=== PATIENT | female | born 1990 | race Two or more races ===

== ENCOUNTER 2024-10-16 22:13 | Emergency (ER) | payer MEDICAID, SELFPAY ==
[2024-10-16 22:14] VITALS: BMI 34.3
[2024-10-16 22:32] VITALS: BP 141/93; PULSE 88; RESP 18; TEMP 37.3; O2SAT 96
--- NOTE | 2024-10-16 22:46 | EDNOTE_ITS ---
ED Ear RME/HPI General Chief complaint: Dental/Oral/Throat Stated complaint: SORE THROAT / LT EARACHE Time Seen by Provider: 10/16/24 22:41 Arrival date/time: 10/16/24 22:13 34 year old female present to emergency room with c/o of sore throat, left ear pain and eye redness for 3 days. Pt report sore throat and ear pain worsen today. LOCATION: ear, sore throat, eye SEVERITY: Symptoms are described as being severe with limitations on activities of daily living CONTEXT: The patient is unable to identify any inciting events. DURATION/TIMING: The symptoms started approximately 3 days ago and have been constant since and have been progressive getting worse. ASSOCIATED SYMPTOMS: The patient is unable to identify any other associated symptoms. MODIFYING FACTORS: The patient is unable to identify any alleviating or aggravating symptoms. PERTINENT ROS: no fevers, no cough, no chest pain/shortness of breath no nausea,vomiting, diarrhea, no dizziness/headache no rash no loc/syncope episode no vision changes REVIEW OF SYSTEMS: See History of Present Illness - with the exception of those mentioned in the history of present illness, all other systems reviewed and reported as negative GENERAL: In general the patient is awake, interactive, in an emergency department gurney. HEAD/EYES/EARS/NOSE/THROAT: + left ear TM erythema and bulging, no bleeding/rupture or mastoid tenderness. normo-cephalic, atraumatic, mucus membranes are moist, anicteric, palpebral trachea is midline. + left eye inject conjuctivia CARDIOVASCULAR: regular rate and regular rhythm, no murmurs, heart sounds are not distant, strong pulses in all four extremities that are equal and symmetric bilateral upper and lower extremities, normal capillary refill. CHEST/PULMONARY: normal chest rise and fall, good air movement, clear to auscultation bilaterally, normal inspiratory to expiratory ratios without evidence of respiratory distress. NECK: No midline/Paraspinal tenderness, no step off ROM/Strenght intact No Kernig and bruzinski sign. No trauma ABDOMEN: soft, not tender, no masses appreciated BACK: normal range of motion without pain. NEUROLOGICAL: cranio-facial features are symmetric, moves all four extremities equally without obvious limitations or weakness. EXTREMITY: no tenderness to palpation over the long bones or large joints of the bilateral upper and lower extremities, no joint swelling, no joint erythema, no signs of trauma, no unilateral leg swelling and no peripheral edema. SKIN: warm, dry, well-perfused, no jaundice, no rash, no telangiectasias or petechia. PSYCH: calm, cooperative, no evidence of psychosis or agitation Related Data Home Medications ?Medication ?Instructions ?Recorded ?Confirmed paroxetine HCl 20 mg tablet (Paxil) 20 mg PO QDAY 08/05/18 02/23/22 Previous Rx's ?Medication ?Instructions ?Recorded amoxicillin 875 mg-potassium 1 tab PO Q12H #20 tabs 10/16/24 clavulanate 125 mg tablet ofloxacin 0.3 % eye drops See Rx Instructions ophthalmic 10/16/24 (eye) .COMPLEX #5 mL prednisone 20 mg tablet 20 mg PO QDAY 3 days #3 tabs 10/16/24 Allergies Allergy/AdvReac Type Severity Reaction Status Date / Time No Known Allergies Allergy Verified 03/08/23 16:45 Course Course Course Narrative: Patient presenting with otalgia.? Given history and physical exam findings, presentation most consistent with otitis media.? The differential also included pneumonia, urinary tract infection, pharyngitis, upper respiratory infection, otitis externa, mastoiditis, dental infection however these are less likely given data presented thus far.? Patient was provided first dose of steroid and oral antibiotics? in the ED.? Antibiotics were prescribed as below.? Advised to use Tylenol/ibuprofen for fevers.? Informed to return to ETC if has new or worsening symptoms such as persistent fevers, persistent vomiting, decreased PO. Plan:? Discharge from Emergency Department augmentin, predisone 20mg? and ofloxcin drops (eye )? Tylenol/ibuprofen for fevers/pain Followup with PCP in days Informed to return to Emergency Department if has new or worsening symptoms.? Quality Measures none Orders Category Date Time Status Amoxicillin/Pot Clav 875 [Augmentin 875] Med 10/16/24 22:41 Discontinued 1 tab PO X1 ONE predniSONE Med 10/16/24 22:41 Discontinued 20 mg PO X1 ONE Vital Signs Vital signs: Vital Signs Temperature 99.1 F 10/16/24 22:32 Pulse Rate 88 10/16/24 22:32 Respiratory Rate 18 10/16/24 22:32 Blood Pressure 141/93 H 10/16/24 22:32 Pulse Oximetry (%) 96 10/16/24 22:32 Oxygen Delivery Method Room Air 10/16/24 22:32 Ear Patient data External records reviewed:: None Clinical information provided by:: patient Social determinants that could affect healthcare access:: none Patient has the following chronic illnesses:: none How is presenting disease/condition affected by chronic disease/condition?: no chronic disease Evaluation data The following diagnostics were reviewed and interpreted by me:: other (specify) (none ) Lab and/or radiology exams considered but not ordered:: none Interpretation Summary: none Medications / Prescriptions Medications or Prescriptions considered but not ordered:: none Medication administrations:: Medication Administration History Discontinued Medications Amoxicillin/Clavulanate Potassium (Amoxicillin/Pot Clav 875 Tablet) 1 tab PO X1 ONE Stop: 10/16/24 22:42 Prednisone (Prednisone 20 Mg Tablet) 20 mg PO X1 ONE Stop: 10/16/24 22:42 as stated above Consultations Consultation(s) initiated? (list below): No Diagnosis Most likely diagnosis given after review of the tests above:: OM, conjuctivitis Admission Indicated Admission indicated?: not indicated Admission Request Was there a request for admission?: No Disposition Plan Disposition Plan: Discharge Discharge Attestation Discharge Attestation: The patient and all family members were given an opportunity to ask questions and understood the discharge instructions. Discharge instructions specifically effects, indications for sooner follow up or return to the emergency department, and the expected course of current diagnosis. Patient condition: Stable Discharge Plan Plan Patient Disposition: HOME (Self Care) Health Concerns: Follow with PMD as directed Take tylenol or motrin as need Return to ED if sx worsen Prescriptions/Referrals Prescriptions/Med Rec: New amoxicillin-pot clavulanate 875-125 mg tablet 1 tab PO Q12H Qty: 20 0RF ofloxacin 0.3 % drops See Rx Instructions .ROUTE .COMPLEX Qty: 5 0RF Rx Instructions: put 1-2 drps into affected eye(s) every 2-4 h x 2 days, then 1-2 drps 4 times/day days 3-7 prednisone 20 mg tablet 20 mg PO QDAY 3 Days Qty: 3 0RF Taper: Prednisone Taper 20 mg DAILY for 2 Days and 0 Hour 10 mg DAILY for 2 Days and 0 Hour 5 mg DAILY for 7 Days and 0 Hour No Action paroxetine HCl [Paxil] 20 mg Tablet 20 mg PO QDAY Referrals: Temporary Provider,ED [Primary Care Provider] - In 1 week Problem List Clinical Impression: Otitis media, Acute bacterial conjunctivitis Patient/Caregiver Discharge Instructions Education Materials: ED Otitis Media Antibiotic ... Print Language: Syriac Stand Alone Forms: Leoisa Award Info., Patient Portal Info Letter
[2024-10-16] MEDS: predniSONE 20 MG TABLET PO (22:56)
[2024-10-16] MEDS: AMOXICILLIN/POT CLAV 875 TABLET 1 TAB PO (22:56)
== END 2024-10-16 22:59 | disposition home or self-care (01) ==
LOC: SERX 22:59
PROVIDERS: Emergency Provider Emergency Medicine; PCP Nurse Practitioner Family
DX: H66.92 Otitis media, unspecified, left ear (principal); H10.32 Unspecified acute conjunctivitis, left eye
CPT/HCPCS: 99282; J7512; A9270

== ENCOUNTER 2025-07-14 21:52 | Emergency (ER) | payer MEDICAID, SELFPAY ==
[2025-07-14 21:54] VITALS: BMI 30.9
[2025-07-14 22:22] VITALS: BP 110/82; PULSE 120; RESP 18; TEMP 36.4; O2SAT 98
--- NOTE | 2025-07-14 22:42 | EDRME_ITS ---
Rapid Medical Screening Exam [facility] Arrival date/time: 07/14/25 21:52 35F with history of psych presents to ED with 5 days of N/V, ab cramping, and non-bloody diarrhea. No recent travel or URI symptoms. Took Linzess (has had it before) prior to this due to chronic constipation. Has been on GLP-1 for about 5 months with no recent dose changes. Chief Complaint: Nausea/Vomiting/Diarrhea Vital signs: Vital Signs Temperature 97.5 F 07/14/25 22:22 Pulse Rate 120 H 07/14/25 22:22 Respiratory Rate 18 07/14/25 22:22 Blood Pressure 110/82 07/14/25 22:22 Pulse Oximetry (%) 98 07/14/25 22:22 Oxygen Delivery Method Room Air 07/14/25 22:22
[2025-07-14 23:17] LABS: Basophils # (Auto) 0.0 Thou/mm3 (0.0-0.2); Basophils % (Auto) 0 % (0-2.5); Eosinophils # (Auto) 0.1 Thou/mm3 (0.0-0.5); Eosinophils % (Auto) 1 % (0-10); Hematocrit 43.2 % (36.0-46.0); Hemoglobin 14.2 g/dL (12.0-16.0); Immature Granulocytes Auto 0.06 Thou/mm3 (0.00-0.00); Lymphocytes # (Auto) 2.5 Thou/mm3 (1.0-4.8); Lymphocytes % (Auto) 17 % (10-50); Mean Corpuscular HGB Conc 32.9 g/dl (31.0-37.0); Mean Corpuscular Hemoglobin 25.7 pg (25.0-35.0); Mean Corpuscular Volume 78 fL (80-100); Monocytes # (Auto) 1.0 Thou/mm3 (0.0-0.8); Monocytes % (Auto) 7 % (0-12); Neutrophils # (Auto) 10.7 Thou/mm3 (1.8-7.7); Neutrophils % (Auto) 75 % (37-80); Nucleated Red Blood Cell # 0.00 Thou/mm3 (0.00-0.00); Nucleated Red Blood Cell % 0 /100 WBC (0); Platelet Count 411 Thou/mm3 (140-440); RDW Standard Deviation 41.0 fL (36.4-46.3); Red Blood Count 5.53 Miln/mm3 (4.00-5.20); White Blood Count 14.3 Thou/mm3 (3.6-11.0)
[2025-07-14 23:41] LABS: Alanine Aminotransferase 38 U/L (10-49); Albumin, Serum 5.5 gm/dL (3.5-5.0); Albumin/Globulin Ratio 1.7 (1.2-2.2); Alkaline Phosphatase 93 U/L (46-116); Anion Gap 11 (7-16); Aspartate Amino Transferase 34 U/L (0-34); BUN/Creatinine Ratio 14 Ratio (12-20); Bilirubin,Total 0.6 mg/dL (0.3-1.2); Blood Urea Nitrogen 14 mg/dL (9-23); Calcium 10.5 mg/dL (8.3-10.6); Calcium (Corrected) 10.5 mg/dL (8.5-10.1); Carbon Dioxide 20.8 mMol/L (20.0-31.0); Chloride 104 mMol/L (98-107); Creatinine (Component) 1.0 mg/dL (0.6-1.3); Estimated Creatinine Clearance 80.4 mL/min (>60); Globulin 3.2 gm/dL (2.3-3.5); Glucose 105 mg/dL (74-106); Magnesium 2.3 mg/dL (1.6-2.6); Osmolality,Calculated 272 (275-295); Potassium 4.0 mMol/L (3.4-5.1); Procalcitonin 0.06 ng/ml (0.0-0.49); Sodium 136 mMol/L (136-145); Total Protein 8.7 gm/dL (5.7-8.2); eGFR > 60 See Note
[2025-07-14 23:44] LABS: Lactate (Lactic Acid) 1.3 mMol/L (0.4-2.0)
[2025-07-15 00:17] LABS: Collection Type, Urine Clean Catch
[2025-07-15 00:30] LABS: Bacteria,Urine Rare; Bilirubin,Urine 1+ (Negative); Blood,Urine 3+ (Negative); Clarity,Urine Turbid (Clear/Hazy); Color,Urine Yellow (Lt Yel-Yel); Culture Indicated,Urine Contaminated; Glucose, Urine Negative (Negative); HCG Qualitative,Urine Negative; Hyaline Casts,Urine 3 /hpf (0-1); Ketones,Urine 3+ (Negative); Leukocyte Esterase,Urine Positive (Negative); Nitrite,Urine Negative (Negative); PH,Urine 6.0 (5.0-7.0); Protein,Urine 2+ (Neg - Trace); RBC,Urine 21 /hpf (0-3); Specific Gravity,Urine 1.034 (1.001-1.035); Squamous Epithelial Cell,Urine 25 /hpf (0-5); Urobilinogen,Urine 3.0 mg/dL (0.0-1.0); WBC,Urine 36 /hpf (0-5)
[2025-07-15 00:39] LABS: Amphetamine/Methamp Scrn,U Negative (Negative); Barbiturate Screen,Urine Negative (Negative); Benzodiazepines Screen,Urine Negative (Negative); Benzoylecgonine Screen, Ur Negative (Negative); Fentanyl Screen,Urine Negative (Negative); Opiate Screen,Urine Negative (Negative); THC Screen,Urine Negative (Negative)
[2025-07-15 01:43] VITALS: BP 112/86; PULSE 95; RESP 20; TEMP 36.4; O2SAT 98; BMI 30.9
[2025-07-15 01:45] VITALS: BP 112/86; PULSE 97; RESP 25; TEMP 36.6; O2SAT 97
[2025-07-15 02:27] VITALS: BP 124/81; PULSE 96; RESP 12; O2SAT 98
[2025-07-15] MEDS: ONDANSETRON INJ 2 MG/ML INJ 2 ML 4 MG IV (02:40)
[2025-07-15] MEDS: SODIUM CHLORIDE 0.9% 1000 ML 1,000 ML 999 ML IV ×2 (02:41→03:45)
--- NOTE | 2025-07-15 03:39 | PD.EDNV ---
Nausea/Vomit./Diarrhea-RME/HPI General Chief complaint: Nausea/Vomiting/Diarrhea Stated complaint: NVD 5 DAYS Arrival date/time: 07/14/25 21:52 RME / HPI RME / HPI Narrative: 07/14/25 21:52 35F with history of psych presents to ED with 5 days of N/V, ab cramping, and non-bloody diarrhea. No recent travel or URI symptoms. Took Linzess (has had it before) prior to this due to chronic constipation. Has been on GLP-1 for about 5 months with no recent dose changes. Dr. Guzman?s Main ED Evaluation: 35yo female presenting with persistent diarrhea x 5 days. Reportedly took Linzess after having developed constipation prior to onset of diarrhea. She has chills without fever. Positive nausea and vomiting. No abdominal pain. No restaurant food exposure, recent travel, antibiotics, or infectious exposure. PMH unremarkable. PSH includes cholecystectomy. Nonsmoker, nondrinker, no illicit drug use. NKA. Related Data Home Medications ?Medication ?Instructions ?Recorded ?Confirmed paroxetine HCl 20 mg tablet (Paxil) 20 mg PO QDAY 08/05/18 02/23/22 Previous Rx's ?Medication ?Instructions ?Recorded amoxicillin 875 mg-potassium 1 tab PO Q12H #20 tabs 10/16/24 clavulanate 125 mg tablet ofloxacin 0.3 % eye drops See Rx Instructions ophthalmic 10/16/24 (eye) .COMPLEX #5 mL acetaminophen 300 mg-codeine 15 mg 1 tab PO Q8H PRN pain #16 tabs 07/15/25 tablet amoxicillin 500 mg-potassium 1 tab PO TID #21 tabs 07/15/25 clavulanate 125 mg tablet (Augmentin) hyoscyamine sulfate 0.125 mg 0.125 mg PO TID PRN cramping #10 07/15/25 tablet (Levsin) tabs loperamide 2 mg capsule (Imodium 2 mg PO QID PRN loose stool #10 07/15/25 A-D) caps Allergies Allergy/AdvReac Type Severity Reaction Status Date / Time No Known Allergies Allergy Verified 07/14/25 21:57 Review of Systems Review of Systems Systems Reviewed: All systems reviewed, normal except as documented Past Medical History Past Medical History NEUROLOGIC: Negative Neurological Disorders, Cerebrovascular Accident, Transient Ischemic Attacks (TIA), Dementia, Alzheimer's Disease, Parkinson's Disease, Brain Tumor, Meningitis, Seizures, Epilepsy, Multiple Sclerosis, Cerebral Palsy, Amyotrophic Lateral Sclerosis (ALS/Eladia Gehrig's), Guillain-Kingston Syndrome, Spina Bifida, Paralysis, Peripheral Neuropathy, Banuelos's Palsy, Subdural Hematoma, Migraine, Head Trauma, Spinal Cord Injury or Traumatic Brain Injury CARDIAC: Positive Cardiac Disorders and Heart Murmur; Negative Myocardial Infarction, Cardiac Arrhythmia, Atrial Fibrillation, Angina, Coronary Artery Disease, Atherosclerotic Heart Disease, Peripheral Vascular Disease, Hypercholesterolemia, Aneurysm, Congestive Heart Failure, Congenital Heart Disease, Valvular Heart Disease, Rheumatic Fever, Cardiomyopathy, Edema, Pericarditis, Cellulitis, Deep Vein Thrombosis, Hypertension, Hypotension or Varicose Veins RESPIRATORY: Positive Asthma; Negative Chronic Obstructive Pulmonary Disease (COPD), Bronchitis, Emphysema, Pneumonia, Pulmonary Fibrosis, Tuberculosis, Pulmonary Embolism, Pulmonary Edema or Sleep Apnea GASTROINTESTINAL: Positive Gastroesophageal Reflux Disease; Negative Gastrointestinal Disorders, Cirrhosis, Pancreatitis, Celiac Disease, Gall Bladder Disease, Gastrointestinal Bleed, Esophageal Varices, Tijerina's Esophagus, Colitis, Ulcerative Colitis, Diverticulitis, Diverticulosis, Ulcer, Colorectal Cancer, Irritable Bowel, Crohn's Disease, Obstructive Bowel, Hiatal Hernia, Hemorrhoids or Obesity GENITOURINARY: Negative Genitourinary Disorders, Renal Disease, Kidney Stones, Polycystic Kidney Disease, Neurogenic Bladder, Dialysis or Prostate Cancer REPRODUCTIVE: Positive Previous Pregnancies; Negative Breast Cancer, Endometriosis, Genital Herpes, Gonorrhea, Pelvic Inflammatory Disease, Syphilis, Testicular Cancer or Uterine Prolapse MUSCULOSKELETAL: Negative Musculoskeletal Disorders, Muscular Dystrophy, Myasthenia Gravis, Marfan's Syndrome, Bone Cancer, Arthritis, Rheumatoid Arthritis, Osteoporosis, Degenerative Disk Disease, Gout, Scoliosis, Carpal Tunnel Syndrome, Fibromyalgia, Fractures, Degenerative Joint Disease, Osteomyelitis or Poliovirus ENT: Negative Cataracts, Glaucoma, Blind, Retinal Detachment, Macular Degeneration, Ear Infection, Deafness, Head Trauma or Eye Prosthesis ENDOCRINE: Negative Endocrine Disorders, Diabetes Mellitus Type 1, Diabetes Mellitus Type 2, Hypoglycemia, Bran's Syndrome, Zoltan's Disease, Hyperthyroidism, Hypothyroidism, Parathyroid Disease, Pituitary Disease, Systemic Lupus Erythematosus, Syndrome of Inappropriate Antidiuretic Hormone (SIADH), Adrenal Disease or Graves' Disease HEMATOLOGIC: Negative Blood Disorders, Anemia, Leukemia, Hemophilia, Thalassemia, Sickle Cell Disease or Clotting Problems PSYCHO/SOCIAL: Positive Anxiety and Depression; Negative Psychiatric Problems, Schizophrenia, Recreational Drug Use, Bipolar Disorder, Depression, Self-Mutilation, Attention Deficit Disorder, Attention Deficit Hyperactivity Disorder, Post Traumatic Stress Disorder or Eating Disorder OTHER HISTORY: Positive Chicken Pox; Negative Hospitalization, Autoimmune Disease, Down Syndrome, Autism, Developmental Delay, Shingles, Falls, Blood Transfusions, Blood Transfusion Reaction, Anesthesia Reactions, Organ Transplant, Chemotherapy, Radiation Therapy, Hyperbaric Therapy, MRSA, VRSA, Vancomycin-Resistant Enterococci, Human Immunodeficiency Virus (HIV), Measles, Mumps, Rubella ([place] Measles), Pertussis, Clostridium Difficile, Breast Cancer, Cervical Cancer, Colorectal Cancer, Lung Cancer, Ovarian Cancer, Prostate Cancer or Testicular Cancer Family History FAMILY HISTORY: Positive Family Surgery; Negative Family Psychiatric Problems, Family Respiratory Disorders, Family Cardiac Disorders, Family Gastrointestinal Problems, Family Cancer or Family Anesthesia Reaction Surgical History SURGICAL: Negative Pacemaker, Endocrine Surgery, Thyroidectomy, Ear Surgery, Tympanostomy Tube, Eye Surgery, Nose Surgery, Oral Surgery, Adenoidectomy, Cochlear Implant, Corneal Transplant, Throat Surgery, Abdominal Surgery, Tracheostomy, Gastric Bypass Surgery, Gastrostomy, Bowel Surgery, Nephrectomy, Transurethral Resection, Joint Replacement, Amputation, Open Reduction Internal Fixation, Arthroscopy, Neurologic Surgery, Brain Shunt, Mastectomy, Lumpectomy, Hysterectomy, Tubal Ligation, Section or Organ Transplant Social History SMOKING STATUS: Never smoker SUBSTANCE USE: does not use ED Exam Narrative Physical exam: GENERAL APPEARANCE: alert and oriented x 4, appears pale, mildly dehydrated, no acute distress VITALS: All vitals were reviewed and the pulse ox is 98% on room air, which is normal according to my interpretation. HEENT: Normocephalic, atraumatic; pupils equal, round, reactive to light; EOMI; mucous membranes pink, moist; oropharynx clear NECK: Supple LUNGS: CTABL; no wheezes, no rales, no rhonchi HEART: Mildly tachycardic, regular rhythm; normal S1, S2; no murmurs ABDOMEN: non distended; soft, minimal diffuse tenderness, no guarding BACK: no CVA tenderness EXTREMITIES: atraumatic; no edema NEUROLOGIC: awake; alert and oriented x4; cranial nerves II-XII grossly intact; no focal sensory or motor deficits PSYCHIATRIC: appropriate mood and affect SKIN: warm, dry, pale; no rashes Course Quality Measures none Orders Category Date Time Status Insert IV NOW Care 07/14/25 22:[address] abdomen pelvis wo con Stat Exams 07/15/25 03:52 Taken CBC Stat Lab 07/14/25 22:56 Completed CMP [Comprehensive Metabolic Panel] Stat Lab 07/14/25 22:56 Completed Drug Screen,Urine Stat Lab 07/15/25 00:00 Completed HCG Qualitative,Urine Stat Lab 07/15/25 00:00 Completed Lactate (Lactic Acid) Stat Lab 07/14/25 23:28 Completed Mag [Magnesium] Stat Lab 07/14/25 22:56 Completed Procalcitonin Stat Lab 07/14/25 22:56 Completed Stool Culture Routine Lab 07/15/25 03:49 Ordered Urinalysis, C/S if Indicated Stat Lab 07/15/25 00:00 Completed DiphenhydrAMINE INJ [Benadryl Inj] Med 07/15/25 05:14 Discontinued 50 mg IVP X1 ONE Ondansetron Inj [Zofran Inj] Med 07/14/25 22:42 Discontinued 4 mg IV X1 ONE Prochlorperazine Inj [Compazine Inj] Med 07/15/25 03:50 Discontinued 5 mg IV X1 ONE Sodium Chloride 0.9% 1000 ml [Ns] 1,000 ml Med 07/14/25 22:42 Discontinued IV 999 mls/hr Sodium Chloride 0.9% 1000 ml [Ns] 1,000 ml Med 07/15/25 03:49 Discontinued IV 999 mls/hr Vital Signs Vital signs: Vital Signs Temperature 97.5 F 07/14/25 22:22 Pulse Rate 120 H 07/14/25 22:22 Respiratory Rate 18 07/14/25 22:22 Blood Pressure 110/82 07/14/25 22:22 Pulse Oximetry (%) 98 07/14/25 22:22 Oxygen Delivery Method Room Air 07/14/25 22:22 Nausea/Vomiting/Diarrhea MDM Narrative MDM Narrative:: Scribe Attestation: 07/15/25 - Romina Cerda am scribing for and in the presence of Dr. Guzman. 35yo female presenting with persistent diarrhea x 5 days. Reportedly took Linzess after having developed constipation prior to onset of diarrhea. She has chills without fever. Please see PE findings. Lab markers demonstrated mildly elevated WBC of 14.3, no anemia or thrombocytopenia, no left shift or bandemia. Chemistries unremarkable excluding mildly elevated calcium of 10.5. UA contaminated. 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 CT abdomen pelvis demonstrates ?colitis versus technique. Abdominal exam remains benign and has been stable throughout ED course. Will be placed on oral antibiotics, antispasmotics, and antiemetics. Close follow-up recommended. Precaution instructions issued. Dx: colitis, dehydration Patient data External records reviewed:: [facility] previous records (Per chart review, patient was seen here on 03/08/23 for dehydration.) Clinical information provided by:: patient Social determinants that could affect healthcare access:: none Patient has the following chronic illnesses:: none How is presenting disease/condition affected by chronic disease/condition?: no chronic disease Evaluation data The following diagnostics were reviewed and interpreted by me:: lab results and radiology exam(s) Lab and/or radiology exams considered but not ordered:: none Interpretation Summary: Telerad Preliminary Report Draft Patient: SCARLET MORALES. Record#: [id number] Birthdate: 1990 Age/Sex: 35 / F Location: [facility] Attending Dr: Ordering Physician: Date of Service: Procedure(s): Accession Number(s): cc: ~ CT scan of the abdomen and pelvis without intravenous contrast (axial sections with sagittal and coronal reformats) July 15, 2025 at 0410 hours Clinical History: Rule out colitis. Comparison: No prior study is available for comparison. Findings: The lung bases are clear. Fatty infiltration of the liver is noted. The gallbladder is surgically absent. The pancreas, spleen, kidneys and adrenals are unremarkable on this noncontrast study. No evidence of bowel obstruction. The appendix is within normal limits (images [id number], series 2). There is mild wall thickening versus underdistention of the transverse, descending and sigmoid colon. There is no mesenteric or retroperitoneal adenopathy. The urinary bladder, uterus and adnexa are unremarkable. There is no free fluid or free air. The osseous structures are unremarkable. Impression: Mild wall thickening versus underdistention of the transverse, descending and sigmoid colon. In the appropriate clinical setting, the possibility of mild colitis cannot be excluded. Recommend clinical correlation. Other findings as described above. Report Electronically Signed By: Bassam Chung 07/15/2025 5:46:57 AM [EST] Medications / Prescriptions Medications / Prescriptions considered but not ordered:: none Medication administrations:: Medication Administration History Discontinued Medications Diphenhydramine HCl (Diphenhydramine Inj 50 Mg/Ml Vial) 50 mg IVP X1 ONE Stop: 07/15/25 05:15 Last Admin: 07/15/25 05:24 Dose: 50 mg Documented By: ALPHONSE Sodium Chloride (Ns) 1,000 mls @ 999 mls/hr IV .Q1H1M ONE Stop: 07/14/25 23:42 Last Infusion: 07/15/25 04:05 Dose: Infused Documented By: Admin: 07/15/25 02:41 Dose: 999 mls/hr Documented By: ALPHONSE Sodium Chloride (Ns) 1,000 mls @ 999 mls/hr IV .Q1H1M ONE Stop: 07/15/25 04:49 Last Admin: 07/15/25 03:45 Dose: 999 mls/hr Documented By: ISABELLA Ondansetron HCl (Ondansetron Inj 2 Mg/Ml Inj 2 Ml) 4 mg IV X1 ONE; Protocol Stop: 07/14/25 22:43 Last Admin: 07/15/25 02:40 Dose: 4 mg Documented By: ALPHONSE Prochlorperazine Edisylate (Prochlorperazine Inj 5 Mg/Ml Vial 2 Ml) 5 mg IV X1 ONE; Protocol Stop: 07/15/25 03:51 Last Admin: 07/15/25 04:41 Dose: 5 mg Documented By: ISABELLA see above Consultations Consultation(s) initiated? (list below): No Diagnosis Nausea Differential Diagnosis: food poisoning, gastroenteritis, drug-induced nausea and vomiting and dehydration Most likely diagnosis given after review of the tests above:: colitis , dehydration Admission Indicated Admission indicated?: not indicated Admission Request Was there a request for admission?: No Disposition Plan Disposition Plan: Discharge Discharge Attestation Discharge Attestation: The patient and all family members were given an opportunity to ask questions and understood the discharge instructions. Discharge instructions specifically effects, indications for sooner follow up or return to the emergency department, and the expected course of current diagnosis. Patient condition: Stable Discharge Plan Plan Patient Disposition: HOME (Self Care) Discharge Disposition comment: Stable Prescriptions/Referrals Prescriptions/Med Rec: New amoxicillin-pot clavulanate [Augmentin] 500-125 mg tablet 1 tab PO TID Qty: 21 0RF loperamide [Imodium A-D] 2 mg capsule 2 mg PO QID PRN (Reason: loose stool) Qty: 10 0RF hyoscyamine sulfate [Levsin] 0.125 mg tablet 0.125 mg PO TID PRN (Reason: cramping) Qty: 10 0RF acetaminophen-codeine 300-15 mg tablet 1 tab PO Q8H PRN (Reason: pain) Qty: 16 0RF No Action paroxetine HCl [Paxil] 20 mg Tablet 20 mg PO QDAY amoxicillin-pot clavulanate 875-125 mg tablet 1 tab PO Q12H Qty: 20 0RF ofloxacin 0.3 % drops See Rx Instructions .ROUTE .COMPLEX Qty: 5 0RF Rx Instructions: put 1-2 drps into affected eye(s) every 2-4 h x 2 days, then 1-2 drps 4 times/day days 3-7 Referrals: Laura Contreras FNP [Primary Care Provider] - In 1 week Problem List Clinical Impression: Dehydration, Colitis Patient/Caregiver Discharge Instructions Discharge Activity: activity as tolerated Diet Instructions: clear liquids for 48 hrs Education Materials: Understanding Colitis, ED Dehydration (Adult) Additional Instructions: Clear liquid diet x 24 to 48 hours. Advance as tolerated. Medications as directed. Follow-up with primary care doctor in 5 to 7 days return if worsening. Print Language: Citizen Of [place] Stand Alone Forms: Eloisa Award Info., Patient Portal Info Letter
--- NOTE | 2025-07-15 03:52 | XR_ITS ---
Examination: CT abdomen and pelvis without contrast. Coronal 3-D reconstructions. Sagittal 2-D reconstructions. Date and time of exam:July 15, 2025, 0410 hrs. Indications: Nausea vomiting diarrhea beginning 5 days ago, clinical diagnosis colitis Comparison: October 23, 2020 CTDI: vol (mGy): 9.29 DLP: (mGycm): 566 Technique: Axial images of the abdomen have been obtained, 3 mm slice thickness Intravenous contrast material has not been administered. Low dose protocols were performed. One or more of the following dose reduction techniques were used; automated exposure control, adjustment of the mA and/or KV according to patient size, use of iterative reconstruction technique. Findings: No focal liver or splenic lesions Absent gallbladder No common bile duct stones No pancreatic or adrenal mass No renal or ureteral calculi, no hydronephrosis Aorta normal size No pericecal inflammatory change, normal appendix No pelvic mass Urinary bladder intact Mild wall thickening of the colon Impression: Mild nonspecific diffuse colitis pattern
[2025-07-15] MEDS: PROCHLORPERAZINE INJ 5 MG/ML VIAL 2 ML IV (04:41)
[2025-07-15 04:47] VITALS: BP 118/78; PULSE 78; RESP 16; O2SAT 98
--- NOTE | 2025-07-15 05:47 | PRELIM_ITS ---
CT scan of the abdomen and pelvis without intravenous contrast (axial sections with sagittal and coronal reformats) July 15, 2025 at 0410 hours Clinical History: Rule out colitis. Comparison: No prior study is available for comparison. Findings: The lung bases are clear. Fatty infiltration of the liver is noted. The gallbladder is surgically absent. The pancreas, spleen, kidneys and adrenals are unremarkable on this noncontrast study. No evidence of bowel obstruction. The appendix is within normal limits (images [id number], series 2). There is mild wall thickening versus underdistention of the transverse, descending and sigmoid colon. There is no mesenteric or retroperitoneal adenopathy. The urinary bladder, uterus and adnexa are unremarkable. There is no free fluid or free air. The osseous structures are unremarkable. Impression: Mild wall thickening versus underdistention of the transverse, descending and sigmoid colon. In the appropriate clinical setting, the possibility of mild colitis cannot be excluded. Recommend clinical correlation. Other findings as described above. Report Electronically Signed By: Bassam Chung 07/15/2025 5:46:57 AM [EST]
[2025-07-15 07:12] VITALS: BP 118/68; PULSE 68; RESP 18; TEMP 36.8; O2SAT 99
== END 2025-07-15 07:16 | disposition home or self-care (01) ==
PROVIDERS: Physician Assistant; Emergency Provider Emergency Medicine; PCP Registered Nurse Community Health
DX: K52.9 Noninfective gastroenteritis and colitis, unspecified (principal); E86.0 Dehydration
CPT/HCPCS: 36415; 74176; 80053; 80307; 81001; 81025; 83605; 83735; 84145; 85025; 87015; 87045; 87046; 87899; 99284; J0780; J1200; J2405; J7030